=== PATIENT | female | born 1985 | race Caucasian/White ===

== ENCOUNTER 2019-01-31 14:24 | Inpatient (IN) ==
[2019-01-31 14:56] LABS: BILIRUBIN URINE NEGATIVE (NEGATIVE); BLOOD URINE NEGATIVE (NEGATIVE); CLARITY SL. CLOUDY (CLEAR); COLOR YELLOW; GLUCOSE URINE NEGATIVE (NEGATIVE); KETONE URINE NEGATIVE (NEGATIVE); LEUKOCYTES URINE 1+ (NEGATIVE); NITRITE URINE POSITIVE (NEGATIVE); PROTEIN URINE NEGATIVE (NEGATIVE); SP GRAVITY URINE 1.005; UROBILINOGEN URINE NORMAL
[2019-01-31 15:17] LABS: URINE EPITHELIAL CELLS >10 /HPF (<10)
[2019-01-31 15:18] LABS: URINE BACTERIA 1+ /HFP; URINE CAST NONE SEEN /LPF; URINE CRYSTAL NONE SEEN /HPF; URINE SOURCE CLEAN CATCH; URINE YEAST NONE SEEN /HPF
[2019-01-31] MEDS ORDERED: ZOFRAN ODT PO ONE (17:14)
[2019-01-31] MEDS ORDERED: TORADOL IM ONE (17:15)
[2019-01-31 17:36] LABS: BASO# 0.02 X1000 (0.0-0.2); BASO% 0.1 % (0.0-0.8); EOS# 0.07 X1000 (0.0-0.7); EOS% 0.4 % (0.0-10.0); HEMATOCRIT 38.7 % (37.0-47.0); HEMOGLOBIN 12.8 g/dL (12.0-16.0); IMM GRAN# 0.06 X1000 (0.0-0.04); IMM GRAN% 0.4 % (0.0-0.5); LYMPH# 2.72 X1000 (1.2-3.4); LYMPH% 16.2 % (20.5-51.1); MCH 30.8 PG (27-31); MCHC 33.1 g/dL (33-37); MONO# 1.59 X1000 (0.11-0.59); MONO% 9.5 % (1.7-9.3); MPV 10.2 FL (7.4-10.4); NEUT# 12.31 X1000 (1.4-6.5); NEUT% 73.4 % (42.2-75.2); PLT 348 X1000 (130-400); RBC 4.16 XMIL (4.2-5.4); RDW 11.9 % (11.5-14.5); WBC 16.77 X1000 (4.8-10.8)
[2019-01-31] MEDS ORDERED: LEVAQUIN 750 MG/D5W 750 MG/150 ML IVPB IV ONE (17:52)
--- NOTE | 2019-01-31 18:03 | PROVIDER DOCUMENTATION ---
This chart was entered by Mindy Larson Scribe, acting as scribe for Madai Lopez CRNP. HPI-Female /OB/Breast - General Chief Complaint: Flank Pain Stated Complaint: SIDE PAIN Time Seen by Provider: 01/31/19 17:05 Source: reports: patient Allergies/Adverse Reactions: Patient Allergies Allergy/AdvReac Type Severity Reaction Status Date / Time Penicillins Allergy RASH Verified 05/27/18 14:08 Sulfa (Sulfonamide Allergy RASH Verified 05/27/18 14:08 Antibiotics) Home Medications: Home Medication List Medication Instructions Recorded Confirmed Last Taken Type NK [No Home Medications] 01/31/19 01/31/19 Unknown History - History of Present Illness-Female /OB Nature of Presenting Problem: pt is a 33yo F that c/o rt flank tenderness, nausea, urinary frequency, darker urine color, and fever. pt has no hx of renal stones. denies dysuria, vaginal odor, or vaginal discharge. reports symptoms began yesterday. Does patient report she is ?: No Location of complaint: reports: right flank Radiation: reports: none Quality of Pain: reports: pressure Severity in ED: reports: moderate Onset/Duration: reports: 24 hours ago Timing: reports: still present Context/Activities at Onset: reports: none Vaginal Symptoms: reports: no symptoms Vaginal Bleeding Amount: None Urinary Symptoms: reports: frequency, urgency. denies: dysuria Modifying Factors: improves with: nothing Associated Symptoms: reports: fever/chills, nausea. denies: diarrhea, dizziness, vomiting Similar Symptoms Previously?: No Recently seen or treated by another doctor?: No Review of Systems - Adult - REVIEW OF SYSTEMS - ADULT Constitutional: reports: chills, fever. denies: fatique, night sweats Eyes: reports: no symptoms reported. denies: decreased vision, blurred vision, double vision Ears, Nose, Mouth & Throat: reports: no symptoms reported Cardiovascular: reports: no symptoms reported. denies: chest pain, palpitations Respiratory: reports: no symptoms reported. denies: cough, dyspnea on exertion, shortness of breath Gastrointestinal: reports: see HPI, nausea. denies: abdominal pain, diarrhea, vomiting Genitourinary: reports: frequency, flank pain (rt flank), urgency, other (dark urine color). denies: dysuria, discharge, urinary retention Musculoskeletal: reports: see HPI Integumentary: reports: no symptoms reported Neurological: reports: no symptoms reported. denies: dizziness/vertigo, headache/migraines Psychiatric: reports: no symptoms reported Endocrine: reports: no symptoms reported Past History - Adult - PAST MEDICAL HISTORY-ADULT Review of Records: reports: Nursing Assessment Review, Medications Reviewed Major Childhood Illnesses: reports: denies history Cardiovascular: reports: denies history Respiratory: reports: denies history Gastrointestinal: reports: denies history Obstetrical/Gynecological: reports: denies history Genitourinary: reports: denies history Musculoskeletal: reports: denies history Neurological: reports: denies history Psychiatric: reports: anxiety Endocrine/Immune: reports: denies history Other Conditions: reports: denies history - PRIOR SURGERIES/PROCEDURES Surgical/Procedure History: reports: BTL, orthopedic (extremity) - IMMUNIZATION STATUS Childhood Immunizations: See Nurse Assessment Flu Vaccine: See Nurse Assessment - FAMILY HISTORY Family History: reviewed, not pertinent - SOCIAL HISTORY Smoking: cigarettes, greater than 1 pack/day Provider spent 3-5 mins advising pt. on dangers of tobacco.: Discussed manners to quit use, and f/u contacts for add'l counseling. Substance Use: alcohol, amphetamines (crystal meth) Alcohol Use Frequency: occasionally Physical Exam-General - PHYSICAL EXAM-ADULT Initial Vital Signs Reviewed: Yes - CONSTITUTIONAL General Appearance: alert, mild distress, thin. negative: slow to respond, obtunded, combative - EYES Eyes: PERRL/EOMI, pink conjunctivae - HEAD, EARS, NOSE, MOUTH & THROAT HENMT: normocephalic/atraumatic, moist mucous membranes - NECK Neck: non-tender, full range of motion, supple, normal inspection - RESPIRATORY Respiratory: chest non-tender, lungs clear, normal breath sounds, no pleuratic chest pain, no respiratory distress, no accessory muscle use. negative: crackles, rales, rhonchi, stridor, wheezing - CARDIOVASCULAR Cardiovascular: tachycardia (113) - GASTROINTESTINAL (ABDOMEN) Abdominal Exam: normal bowel sounds, non tender, soft, no organomegaly, no pulsatile mass. negative: distended, guarding, rigid - MUSCULOSKELETAL Back Exam: normal inspection, no vertebral tenderness, CVA tenderness (R). negative: no CVA tenderness, ecchymosis, lordosis, muscle spasm Extremity: normal range of motion, non-tender, normal gait, normal inspection, pelvis stable Peripheral Pulses: radial (R): 2+, radial (L): 2+ - SKIN Integumentary: normal color, warm/dry. negative: cyanosis, jaundice, pallor - NEUROLOGIC Neurologic: grossly normal - PSYCHIATRIC Psych/Mental Status: normal mood/affect, normal thought content, normal thought process, oriented x 3 Progress - PLAN OF CARE/RESULTS Progress/Plan/Lab Results: Vital Signs - 8 hr 01/31/19 14:28 Temperature 99.8 F H Pulse Rate 113 H Respiratory Rate 18 Blood Pressure 112/88 O2 Sat by Pulse Oximetry 96 Bedside Urine ED: Urine Bedside Start: 01/31/19 14:31 Freq: ORDERED Status: Active Protocol: Activity Type Activity Date Activity User E-Sign Co-Sign Detail Recorded Client Recorded Date Recorded By Document 01/31/19 14:35 [id number] 01/31/19 14:35 [id number] 01/31/19 14:35 Point of Care [Bedside Point of Care] -Lot # [id number] - Results Negative -Control Line Visible? Yes Laboratory Results - last 24 hr 01/31/19 01/31/19 01/31/19 14:37 14:37 17:28 WBC RBC Hgb Hct MCV MCH MCHC RDW Std Deviation Plt Count MPV Immature Gran % (Auto) Neut % (Auto) Lymph % (Auto) [place] % (Auto) Eos % (Auto) Baso % (Auto) Immature Gran # (Auto) Neut # (Auto) Lymph # (Auto) [place] # (Auto) Eos # (Auto) Baso # (Auto) Sodium 134 L Potassium 3.8 Chloride 99 Carbon Dioxide 27 Anion Gap 9 BUN 8 Creatinine 0.5 Estimated GFR/1.73 m2 > 60 BUN/Creatinine Ratio 16 Glucose 100 Calculated Osmolality 267 Calcium 8.9 Urine Source CLEAN CATCH Urine Color YELLOW Urine Clarity SL. CLOUDY A Urine pH 7.0 Ur Specific [place] 1.005 Urine Protein NEGATIVE Urine Ketones NEGATIVE Urine Blood NEGATIVE Urine Nitrite POSITIVE A Urine Bilirubin NEGATIVE Urine Urobilinogen NORMAL Urine Microscopic RBC Not Reportable Urine WBC 1+ A Urine Microscopic WBC 10-20 A Ur Epithelial Cells >10 A Urine Crystals NONE SEEN Urine Bacteria 1+ Urine Casts NONE SEEN Urine Yeast NONE SEEN Urine Glucose NEGATIVE Urine Opiates Screen NONE DETECTED Ur Oxycodone Screen NONE DETECTED Urine Methadone Screen NONE DETECTED U Propoxyphene Qual NONE DETECTED Ur Barbituates Screen NONE DETECTED Ur Tricyclics Screen NONE DETECTED Ur Phencyclidine Scrn NONE DETECTED Ur Amphetamines Screen PRESUMPTIVE POSITIVE A U Methamphetamines Scrn PRESUMPTIVE POSITIVE A U Benzodiazepines Scrn NONE DETECTED Urine Cocaine Screen NONE DETECTED U Cannabinoids Screen NONE DETECTED 01/31/19 17:28 WBC 16.77 H RBC 4.16 L Hgb 12.8 Hct 38.7 MCV 93.0 MCH 30.8 MCHC 33.1 RDW Std Deviation 11.9 Plt Count 348 MPV 10.2 Immature Gran % (Auto) 0.4 Neut % (Auto) 73.4 Lymph % (Auto) 16.2 L [place] % (Auto) 9.5 H Eos % (Auto) 0.4 Baso % (Auto) 0.1 Immature Gran # (Auto) 0.06 H Neut # (Auto) 12.31 H Lymph # (Auto) 2.72 [place] # (Auto) 1.59 H Eos # (Auto) 0.07 Baso # (Auto) 0.02 Sodium Potassium Chloride Carbon Dioxide Anion Gap BUN Creatinine Estimated GFR/1.73 m2 BUN/Creatinine Ratio Glucose Calculated Osmolality Calcium Urine Source Urine Color Urine Clarity Urine pH Ur Specific [place] Urine Protein Urine Ketones Urine Blood Urine Nitrite Urine Bilirubin Urine Urobilinogen Urine Microscopic RBC Urine WBC Urine Microscopic WBC Ur Epithelial Cells Urine Crystals Urine Bacteria Urine Casts Urine Yeast Urine Glucose Urine Opiates Screen Ur Oxycodone Screen Urine Methadone Screen U Propoxyphene Qual Ur Barbituates Screen Ur Tricyclics Screen Ur Phencyclidine Scrn Ur Amphetamines Screen U Methamphetamines Scrn U Benzodiazepines Scrn Urine Cocaine Screen U Cannabinoids Screen Orders Category Date Time Status Admit - [facility] Routine AdmDCTranf 01/31/19 18:36 Active Activity - Up with Assistance ORDERED Care 01/31/19 18:36 Active DVT/PE Risk Assess/Protocol [QM] ORDERED Care 01/31/19 18:36 Active ED: Urine Bedside ORDERED Care 01/31/19 14:31 Active Intake and Output-Strict ORDERED Care 01/31/19 18:36 Active Saline Loc NOW Care 01/31/19 17:52 Active Vital Signs Order Q 8-HR ASSESS Care 01/31/19 18:36 Active Regular Diet Diet 01/31/19 18:37 Active BASIC METABOLIC PANEL [CHEM] Stat Lab 01/31/19 17:28 Completed BLOOD CULTURE [BLDCUL] Stat Lab 01/31/19 18:41 Ordered CBC WITH ELECTRONIC DIFF [HEME] Stat Lab 01/31/19 17:28 Completed CBC WITH NO DIFF [HEME] Routine Lab 02/01/19 06:00 Ordered COMPREHENSIVE METABOLIC PANEL [CHEM] Routine Lab 02/01/19 06:00 Uncollected MAGNESIUM [CHEM] Routine Lab 02/01/19 06:00 Uncollected TSH Routine Lab 02/01/19 06:[address] W/POSS RFLX CULT [URINALYSIS] Stat Lab 01/31/19 14:37 Completed URINE CULTURE [RM] Routine Lab 01/31/19 15:18 Ordered URINE DRUG SCREEN PL Stat Lab 01/31/19 14:37 Completed 0.9% Sodium Chloride Inj [Ns] 1,000 ml Med 01/31/19 18:45 Ordered IV 75 mls/hr Acetaminophen [Tylenol] Med 01/31/19 18:38 Ordered 650 mg PO Q6H PRN PRN Ketorolac [Toradol] Med 01/31/19 17:15 Discontinued 30 mg IM NOW ONE Levofloxacin 750 mg/D5w [Levaquin 750 mg/D5w] Med 01/31/19 17:52 Active 750 mg in 150 ml IV NOW Levofloxacin 750 mg/D5w [Levaquin 750 mg/D5w] Med 01/31/19 18:45 Ordered 750 mg in 150 ml IV Q24H Ondansetron Odt [Zofran Odt] Med 01/31/19 17:14 Discontinued 4 mg PO NOW ONE Ondansetron [Zofran] Med 01/31/19 18:38 Ordered 4 mg IV Q4-6H PRN PRN EKG [EKG] Stat Ther 01/31/19 17:57 Ordered Lab results and plan of care discussed with patient who verbalizes understanding. Patient notified of need for inpatient admission for IV antibiotics. Patient accepts admission. Result Diagrams: 01/31/19 17:28 01/31/19 17:28 - CONSULTS/PCP/HOSPITALIST Notification #1 *Consult/PCP/Hospitalist*: Lyubov Winslow Time Discussed: 18:03 Reason/Comments: Pyelonephritis, tachycardia, fever, nausea Consult Disposition: Admit Departure - Departure Date of Disposition Decision: 01/31/19 Time of Disposition Decision: 18:03 DIAGNOSIS: Pyelonephritis, Nausea, Tachycardia, Amphetamine abuse, Methamphetamine use Leukocytosis Qualifiers: Leukocytosis type: unspecified Qualified Code(s): D72.829 - Elevated white blood cell count, unspecified Disposition: ADMITTED INPATIENT 09 Certified Medical Emergency: Emergent Condition: Stable Referrals and Follow-Ups: None,PCP [Primary Care Provider] - - Critical Care Note This patient required my direct & personal management of CC.: No Attestation - Physician/ KAHLIL Attestation Patient care was provided by Advanced Practice Provider:: Yes Advanced Practice Provider:: Madai Lopez Advanced Practice Provider documentation review:: The Mid-level provider documentation, treatment plan and medical decision making was reviewed by the physician who agrees with all treatment and medical decision making by the MLP. The physician spent face to face time with patient:: No Advanced Practice Provider documentation review:: Supervising physician onsite and consulted in the evaluation and care of this patient. The physician did not have a face to face encounter with the patient. This chart was documented by the indicated scribe, (Mindy Larson Scribe) and accurately reflects the services I performed and decisions made by me, Madai Lopez CRNP, as attested by the provider's signature.
[2019-01-31 18:04] LABS: AGAP 9; BUN 8 mg/dL (8-22); CALCIUM 8.9 mg/dL (8.8-10.2); CHLORIDE 99 mmol/L (98-107); COSMO 267; CREATININE 0.5 mg/dL (0.5-0.9); ESTIMATED GFR > 60; GLUCOSE 100 mg/dL (70-104); POTASSIUM 3.8 mmol/L (3.5-5.1); SODIUM 134 mmol/L (136-145); TCO2 27 mmol/L (25-35)
[2019-01-31 18:15] LABS: UR AMPHETAMINES QUAL PRESUMPTIVE POSITIVE (NONE DETECT); UR BARBITUATES QUAL NONE DETECTED (NONE DETECT); UR BENZODIAZEPIN QUAL NONE DETECTED (NONE DETECT); UR CANNABINOIDS QUAL NONE DETECTED (NONE DETECT); UR COCAINE QUAL NONE DETECTED (NONE DETECT); UR METHADONE QUAL NONE DETECTED (NONE DETECT); UR METHAMPHETAMINE QUAL PRESUMPTIVE POSITIVE (NONE DETECT); UR OPIATES QUAL NONE DETECTED (NONE DETECT); UR OXYCODONE QUAL NONE DETECTED (NONE DETECT); UR PCP QUAL NONE DETECTED (NONE DETECT); UR PROPOXYPHENE QUAL NONE DETECTED (NONE DETECT); UR TCA QUAL NONE DETECTED (NONE DETECT)
[2019-01-31] MEDS ORDERED: ZOFRAN IV PRN (18:38)
[2019-01-31] MEDS ORDERED: TYLENOL PO PRN (18:38)
[2019-01-31] MEDS ORDERED: NS 1,000 ML IV SCH (18:45)
--- NOTE | 2019-01-31 20:36 | EKG Report ---
Test Performed on : 01/31/2019 6:58:21 PM Test Reason : tachycardia; meth usage Blood Pressure : / mmHG Vent. Rate : 085 BPM Atrial Rate : 085 BPM P-R Int : 126 ms QRS Dur : 074 ms QT Int : 364 ms P-R-T Axes : 061 041 023 degrees QTc Int : 433 ms Normal sinus rhythm. Nonspecific T wave abnormality Abnormal ECG No previous ECGs available Unconfirmed Result
--- NOTE | 2019-02-01 03:53 | HISTORY AND PHYSICAL ---
CHIEF COMPLAINT: Nausea, vomiting, right-sided pain. HISTORY OF PRESENT ILLNESS: Patient is a 33-year-old female who is very pleasant. She is lying in the bed. She presented with nausea, abdominal pain, right-sided flank pain, urinary frequency. Noted that her urine has been dark. She had a fever. All this started today. She has no history of kidney stones. No history of urinary infections. In fact, denies any urinary symptoms prior to this morning. Denies any fevers or chills prior to this morning. ALLERGIES: Penicillin, sulfa causing a rash. MEDICATIONS: No current prescription medications. REVIEW OF SYSTEMS: Positive frequency, urgency, pain on the right flank. She has had moderate to severe pain. Started all within the past 12 to 18 hours. Denies any constipation, melena, hematochezia. Denies hematuria. Does have dysuria as well as frequency. Denies headaches, blurred vision, change in vision. Denies any focalized numbness, tingling, or weakness. Denies chest pain, palpitations. Denies shortness of breath or increased work of breathing. PAST MEDICAL HISTORY: She has no active chronic medical problems other than anxiety. PAST SURGICAL HISTORY: She had a BTL and has had extremity surgery. FAMILY HISTORY: Noncontributory. SOCIAL HISTORY: Patient does smoke about a pack a day. Does have a history of alcohol use as well as crystal methamphetamine use. PHYSICAL EXAMINATION: VITAL SIGNS: Temperature 99.8 degrees, pulse 113 respiratory rate 18, BP 112/88. GENERAL: Patient is awake, alert. She is in no current respiratory distress, but she is obviously ill appearing. HEENT: Normocephalic. NECK: Supple. CARDIOVASCULAR: Regular rate. No murmurs. CHEST: Clear and nonlabored. No wheezing. ABDOMEN: Soft. Positive right-sided flank pain. Positive bowel sounds. EXTREMITIES: Moves all extremities. No edema. NEUROLOGIC: No focal changes. She is awake, alert, oriented x3. SKIN: Warm, dry. No rashes. ASSESSMENT: 1. Sepsis as noted by her leukocytosis, tachycardia and pyelonephritis. 2. Leukocytosis. 3. Supraventricular tachycardia. 4. Pyelonephritis. 5. History of methamphetamine use which also could be contributing to her tachycardia and leukocytosis. PLAN: We will continue patient in the hospital. Continue IV fluids, antibiotics, and we will follow. cc: Chet Winslow MD
[2019-02-01 07:04] LABS: HEMATOCRIT 37.5 % (37.0-47.0); HEMOGLOBIN 12.5 g/dL (12.0-16.0); MCH 31.1 PG (27-31); MCHC 33.3 g/dL (33-37); MCV 93.3 FL (81-99); MPV 10.3 FL (7.4-10.4); RBC 4.02 XMIL (4.2-5.4); RDW 11.9 % (11.5-14.5); WBC 13.92 X1000 (4.8-10.8)
[2019-02-01 07:30] VITALS: BP 102/85
[2019-02-01 08:08] LABS: AGAP 10; ALBUMIN 3.6 g/dL (3.5-5.0); ALKALINE PHOSPHATASE 62 U/L (32-104); BUN 14 mg/dL (8-22); CALCIUM 8.7 mg/dL (8.8-10.2); CHLORIDE 105 mmol/L (98-107); COSMO 279; CREATININE 0.5 mg/dL (0.5-0.9); ESTIMATED GFR > 60; GLUCOSE 90 mg/dL (70-104); GOT 10 U/L (10-30); GPT 10 U/L (10-36); MAGNESIUM 1.8 mg/dL (1.5-2.7); POTASSIUM 4.1 mmol/L (3.5-5.1); SODIUM 140 mmol/L (136-145); TCO2 25 mmol/L (25-35)
[2019-02-01] MEDS ORDERED: LEVAQUIN 750 MG/D5W 750 MG/150 ML IVPB IV SCH (18:00)
--- NOTE | 2019-02-02 10:21 | DISCHARGE SUMMARY ---
ADMISSION DATE: 01/31/2019 DISCHARGE DATE: 02/01/2019 DISCHARGE DIAGNOSIS: 1. Sepsis, resolved. 2. Pyelonephritis, improved. 3. Leukocytosis, resolved. 4. Supraventricular tachycardia, resolved. 5. Methamphetamine use and abuse. CONSULTATIONS: None. PROCEDURES: None. BRIEF HOSPITAL COURSE: The patient is a 33-year-old female who presented to the hospital, treated in the usual fashion, placed on antibiotics, IV fluids. Her white count improved. Her elevated heart rate may have been more secondary to methamphetamine use than due to infection. Regardless, it is improved. On discharge, she notes her pain is better. States she is feeling better. She has no nausea. No abdominal pain. She is tolerating a full diet. Therefore she is asking to go home. DISPOSITION: Patient will be discharged home to follow up outpatient with her primary care. Discussed with her that she will need to either contact her primary care of choice or contact the hospital in a few days to make sure that her culture and sensitivity are good for the antibiotic that she is discharged home on. Discussed with patient the perils of use and abuse. Discussed outpatient life counseling as well as drug counseling, avoidance of triggers and persons, places, and situations. 30 minutes was spent in total care. cc: Chet Winslow MD
== END 2019-02-01 11:40 | disposition home or self-care (01) | DRG 872 ==
LOC: P.ED 14:24 → P.MEDSURG 20:58
PROVIDERS: ATTEND Family Medicine
CPT/HCPCS: 80048; 80053; 80104; 80301; 80305; 81001; 83735; 84443; 85025; 85027; 87040; 87077; 87088; 87186; 93005; A9270; G0431; G0434; G0477; J1885; J1956; J7030